=== PATIENT | male | born 1970 | race Caucasian/White ===

== ENCOUNTER → 2016-06-19 | Outpatient (REF) | payer BC ==
[~2016-06-19] MED LIST: LISI-538 PO
[2016-06-19 16:09] LABS: VITAMIN B12 LEVEL 515 PG/ML (247-911)
[2016-06-20 08:29] LABS: CONTROL LINE HPYORI INT CTR LINE PRESENT
== END ==
LOC: M LAB REF 14:52
PROVIDERS: ATTEND Internal Medicine
DX: D51.9 Vitamin B12 deficiency anemia, unspecified (principal); R12 Heartburn

== ENCOUNTER 2016-08-22 08:52 | Outpatient (CLI) | payer BC ==
[~2016-08-22] VITALS: Ht 182.9 cm; Wt 96.4 kg
[~2016-08-22 08:52] MED LIST changes: +OMEP20CA3 PO
[2016-08-22] MEDS ORDERED: NS 1,000 ML IV SCH (09:00)
[2016-08-22] MEDS ORDERED: OMEP20CA3 PO (09:39)
[2016-08-22] MEDS ORDERED: LIDOCAINE 2% INJ 100 MG/5 ML SDV (FOR ANES.) As Ordered ONE (10:37)
[2016-08-22] MEDS ORDERED: fentaNYL 100 MCG/2 ML INJECTION (J3010) As Ordered ONE (10:37)
[2016-08-22] MEDS ORDERED: PROPOFOL 200 MG/20 ML VIAL As Ordered ONE ×2 (10:37→10:45)
--- NOTE | 2016-08-22 10:59 | ROOR ---
Patient Name: Irvin Rangel Procedure Date: 08/22/2016 10:33 AM Date of : 1970 Age: 46 Room: [facility] Gender: Male Note Status: Finalized Procedure: Upper GI endoscopy Indications: Dysphagia, Heartburn Providers: Darnell PRETTY MD Referring MD: Aurelia Preston DO Requesting Provider: Medicines: Monitored Anesthesia Care Complications: No immediate complications. Procedure: Pre-Anesthesia Assessment: - The heart rate, respiratory rate, oxygen saturations, blood pressure, adequacy of pulmonary ventilation, and response to care were monitored throughout the procedure. The Endoscope was introduced through the mouth, and advanced to the second part of duodenum. The upper GI endoscopy was accomplished without difficulty. The patient tolerated the procedure well. Findings: Circumferential salmon-colored mucosa was present from 38 to 40 cm. No other visible abnormalities were present. The maximum longitudinal extent of these esophageal mucosal changes was 2 cm in length. Biopsies were taken with a cold forceps for histology. The entire examined stomach was normal. The examined duodenum was normal. No endoscopic abnormality was evident in the esophagus to explain the patient's complaint of dysphagia. It was decided, however, to proceed with dilation of the entire esophagus. The scope was withdrawn. Dilation was performed with a Red dilator with no resistance at 54 Fr. Impression: - [place]-colored mucosa suggestive of short-segment (2 cm) Caldwell's esophagus-(smooth, no visible abnormalities). Biopsied x 10 biopsies. - Normal stomach. - Normal examined duodenum. - Schatzki ring as suspected on Barium swallow exam, is not present/seen. - No endoscopic esophageal abnormality to explain patient's dysphagia. Esophagus dilated with 54 F Red dilator. Recommendation: - Use Prilosec (omeprazole) 40 mg twice a day for Barretts esophagus. - Telephone endoscopist for pathology results in 2 weeks. - Repeat upper endoscopy in 3 years for surveillance. - Observe patient's clinical course. Darnell Pretty MD Darnell PRETTY MD 08/22/2016 10:59:22 AM This report has been signed electronically. Number of Addenda: 0 Note Initiated On: 08/22/2016 10:33 AM Estimated Blood Loss: Estimated blood loss: none.
[2016-08-22 11:15] VITALS: BP 142/78
== END 2016-08-22 11:33 | disposition home or self-care (01) ==
LOC: M OPP 08:52
PROVIDERS: ATTEND Internal Medicine Gastroenterology
DX: R12 Heartburn (principal); K22.8 Other specified diseases of esophagus; K20.9 Esophagitis, unspecified; I10 Essential (primary) hypertension; Z88.5 Allergy status to narcotic agent; Z79.899 Other long term (current) drug therapy
CPT/HCPCS: 43239; 43450; 88305; 99156; J3010

== ENCOUNTER → 2018-03-18 | Outpatient (CLI) | payer BC | LOC: M WUC 11:25 | DX: S20.211A Contusion of right front wall of thorax, initial encounter (principal); X58.XXXA Exposure to other specified factors, initial encounter; Y92.9 Unspecified place or not applicable | CPT/HCPCS: 71101 ==

== ENCOUNTER → 2018-12-04 | Outpatient (CLI) | payer BC ==
[~2018-12-04] MED LIST changes: +E-Z-GAS II EFFERVESCENT PACKET (SODIUM BICARB./CITRIC ACID/SIMETHICONE) As Ordered ONE; +E-Z-HD 98% w/w 340GM SUSP BTL As Ordered ONE; +E-Z-PAQUE 96% w/w SUSP 176GM BTL As Ordered ONE; +OMEP1CAP73 PO; -OMEP20CA3 PO
--- NOTE | 2018-12-05 00:16 | REP ---
Upper GI Air Contrast with SBFT The procedure was performed by FLORA Lopez, under the the direct supervision of Dr. Ricks. The images were reviewed with Dr. Ricks. The supervising floorperson film shows no organomegaly or pathological masses. The intestinal gas pattern appears normal. Liquid barium and gas producing crystals were given in the erect position as well as liquid barium in the prone position in order to perform a double contrast upper GI examination. The oral and pharyngeal stages of deglutition were unremarkable. The esophagus appears dilated. Esophageal transport is efficient and there is no esophagitis, stricture, or mucosal ring noted. However, there was delayed emptying and tertiary contractions were observed when the patient was in the prone and supine positions. There is no hiatal hernia. Gastroesophageal reflux was not observed throughout the course of the exam. The stomach jacobsen are normally outlined. The rugal folds are smooth and regular. There is no gastritis, neoplasm, or ulcer disease noted. The duodenal jacobsen are normally outlined. The mucosal folds are smooth and regular. There is no duodenitis, peptic ulcer disease, or neoplasm noted. The visualized portion of the proximal small bowel appears normal in course and caliber. The barium column was followed through the small bowel to the level of the terminal ileum. Small bowel transit time was approximately 20 minutes. During fluoroscopy gentle palpation shows all loops are freely mobile and pliable. There are no fixed or angulated loops. The small bowel mucosal pattern is normal in course and caliber. There is no transition to set suggest a partial small-bowel obstruction. The appendix is visualized. Spot filming of the terminal ileum shows it to be unremarkable. Impression: 1. Dilated esophagus without any evidence of stricture. 2. Tertiary contractions. 3. Small bowel transit time of approximately 20 minutes. 1.4 minutes of fluoroscopy time was utilized for this procedure. Some fluoroscopic images are performed with last image hold technology. These images require no additional radiation. Reviewed by FLORA Brunson 12/04/2018 04:58 P Electronically Signed by Cleveland Ricks MD 12/05/2018 12:07 A
== END ==
LOC: M RAD 08:03
PROVIDERS: ATTEND Internal Medicine
DX: R13.10 Dysphagia, unspecified (principal)

== ENCOUNTER → 2019-08-12 | Outpatient (CLI) | payer BC ==
[~2019-08-12] MED LIST changes: -E-Z-GAS II EFFERVESCENT PACKET (SODIUM BICARB./CITRIC ACID/SIMETHICONE) As Ordered ONE; -E-Z-HD 98% w/w 340GM SUSP BTL As Ordered ONE; -E-Z-PAQUE 96% w/w SUSP 176GM BTL As Ordered ONE
== END ==
LOC: M LABSMTC 09:59
PROVIDERS: ATTEND Family Medicine
DX: Z11.59 Encounter for screening for other viral diseases (principal); Z20.828 Contact with and (suspected) exposure to other viral communicable diseases

== ENCOUNTER → 2020-04-29 | Outpatient (CLI) | payer BC ==
[2020-04-29 11:52] LABS: BASO % 0.3 % (0.0-1.0); EOS # 0.1 10^3/uL (0.0-0.5); HEMATOCRIT 47.8 % (42.0-52.0); HEMOGLOBIN 15.6 g/dl (13.5-17.5); LYMPH % 29.4 % (24.0-44.0); MEAN CORPUSCULAR HEMOGLOBIN 28.6 pg (27.0-33.0); MEAN CORPUSCULAR HGB CONC 32.6 g/dl (32.0-36.5); MEAN CORPUSCULAR VOLUME 87.5 fl (80.0-96.0); MONO # 0.3 10^3/uL (0.0-0.8); MONO % 4.2 % (0.0-5.0); NEUTROPHILS # 4.4 10^3/uL (1.5-8.5); NEUTROPHILS % 64.7 % (36.0-66.0); PLATELET COUNT, AUTOMATED 233 10^3/uL (150-450); RED BLOOD COUNT 5.46 10^6/uL (4.30-6.10); WHITE BLOOD COUNT 6.8 10^3/uL (4.0-10.0)
[2020-04-29 12:33] LABS: BLOOD UREA NITROGEN 13 MG/DL (7-18); CARBON DIOXIDE LEVEL 31 MEQ/L (21-32); CHLORIDE LEVEL 105 MEQ/L (98-107); CREATININE FOR GFR 1.06 MG/DL (0.70-1.30); GLOMERULAR FILTRATION RATE > 60.0 (>60); GLUCOSE, FASTING 129 MG/DL (70-100); POTASSIUM SERUM 3.8 MEQ/L (3.5-5.1); SODIUM LEVEL 140 MEQ/L (136-145)
[2020-04-29 12:34] LABS: ALBUMIN 4.2 GM/DL (3.2-5.2); ALT/SGPT 27 U/L (12-78); CALCIUM LEVEL 9.1 MG/DL (8.5-10.1); FREE T4 1.06 NG/DL (0.76-1.46); IRON (FE) 120 UG/DL (65-175); PERCENT SATURATION 36.6 % (19.7-50.0); TOTAL IRON BINDING CAPACITY 328 UG/DL (250-450); TOTAL PROTEIN 7.4 GM/DL (6.4-8.2)
[2020-05-04 00:10] LABS: PSA TOTAL 0.5 ng/mL (0.0-4.0)
== END ==
LOC: M WUC 09:07
PROVIDERS: ATTEND Physician Assistant
DX: R10.30 Lower abdominal pain, unspecified (principal); R31.9 Hematuria, unspecified

== ENCOUNTER → 2020-06-19 | Outpatient (REF) ==
[~2020-06-19] MED LIST changes: -LISI-538 PO; +LISI20TA33 PO
== END ==
LOC: M LABSMTC 10:32
PROVIDERS: ATTEND Pediatrics
DX: Z11.52 Encounter for screening for COVID-19 (principal)

== ENCOUNTER → 2020-06-27 | Outpatient (CLI) | payer BC | LOC: M LABSMTC 10:16 | PROVIDERS: ATTEND Anesthesiology | DX: Z01.812 Encounter for preprocedural laboratory examination (principal); Z20.822 Contact with and (suspected) exposure to COVID-19 ==

== ENCOUNTER 2020-07-02 07:33 | Day surgery (SDC) | payer BC ==
[~2020-07-02] VITALS: Ht 180.3 cm; Wt 96.2 kg
[~2020-07-02 07:33] MED LIST changes: +LR 1,000 ML IV ONE; +ceFAZolin SOD 2 GM in IV 1 EA IV ONE
[2020-07-02] MEDS ORDERED: BUPIVACAINE/EPIN 0.25% 30 ML VIAL As Ordered ONE (08:12)
[2020-07-02] MEDS ORDERED: LIDOCAINE 2% 100MG/5ML SDV (FOR ANES.) As Ordered ONE (08:19)
[2020-07-02] MEDS ORDERED: ROCURONIUM BROMIDE 50 MG/5 ML VIAL As Ordered ONE (08:19)
[2020-07-02] MEDS ORDERED: propofoL 200 MG/20 ML VIAL As Ordered ONE (08:19)
[2020-07-02] MEDS ORDERED: fentaNYL 250 MCG/5 ML INJECTION (J3010) As Ordered ONE (08:20)
[2020-07-02] MEDS ORDERED: MIDAZOLAM INJ 2MG/2ML VIAL (J2250 PER 1MG) As Ordered ONE (08:20)
[2020-07-02] MEDS ORDERED: SCOPOLAMINE 1MG TRANSDERMAL PATCH As Ordered ONE (08:27)
[2020-07-02] MEDS ORDERED: SCOPOLAMINE 1MG TRANSDERMAL PATCH TOP ONE (09:05)
[2020-07-02] MEDS ORDERED: ONDANSETRON 4MG/2ML VIAL As Ordered ONE (09:52)
[2020-07-02] MEDS ORDERED: KETOROLAC 60MG 2ML VIAL As Ordered ONE (09:52)
[2020-07-02] MEDS ORDERED: ACETAMINOPHEN 1000MG 100ML IV BTL (OFIRMEV) (J0131 PER 10MG) As Ordered ONE (09:52)
[2020-07-02] MEDS ORDERED: METOCLOPRAMIDE INJ 10MG/2ML VIAL (J2765 PER 1) As Ordered ONE (09:52)
[2020-07-02] MEDS ORDERED: dexameTHASONE 4 MG/ML 1ML VIAL (J1100 PER 1MG) As Ordered ONE (09:52)
[2020-07-02] MEDS ORDERED: SUGAMMADEX SODIUM 500 MG/5 ML VIAL (BRIDION) As Ordered ONE (09:55)
[2020-07-02] MEDS ORDERED: ONDANSETRON 4MG/2ML VIAL IV PRN (11:00)
[2020-07-02] MEDS ORDERED: LR 1,000 ML IV SCH (11:00)
[2020-07-02] MEDS ORDERED: PERCOCET 5MG/325MG TAB PO PRN (11:00)
[2020-07-02] MEDS ORDERED: fentaNYL 100 MCG/2 ML INJECTION (J3010) IV PRN (11:00)
[2020-07-02] MEDS ORDERED: METOCLOPRAMIDE INJ 10MG/2ML VIAL (J2765 PER 1) IV PRN (11:00)
--- NOTE | 2020-07-02 11:02 | RO ---
OPERATIVE NOTE DATE OF OPERATION: 07/02/2020 PREOPERATIVE DIAGNOSIS: Incarcerated right inguinal hernia. POSTOPERATIVE DIAGNOSIS: Incarcerated right inguinal hernia. PROCEDURE: Robotic repair of incarcerated right inguinal hernia. SURGEON: Cleveland Vargas DO HOUSE CARPENTER: Debra Hauser ANESTHESIA: General. EBL: 5. COMPLICATIONS: None. INDICATIONS FOR PROCEDURE: The patient is a 49-year-old male who presents with a bulge in the right groin that is not reducible. Recommendation made to proceed with robotic repair. Risks and benefits of the procedure not limited to but including bleeding, infection, hernia formation, hernia recurrence, damage to surrounding structures, need for further surgery discussed in detail with the patient, informed consent was obtained and procedure planned. DESCRIPTION OF PROCEDURE: The patient was brought back to operating room 7 after sufficient sedation the abdomen was sterilely prepped and draped. Time out was done to confirm proper patient and proper procedure. Following that an 8 mm incision was made in left upper quadrant, Veress needle inserted and abdomen insufflated to 15 mmHg. Veress needle was removed and 8 mm Optiview port was used to gain access to the abdomen. Once the abdomen was entered two more ports were placed, one subxiphoid, one in right upper quadrant. The abdomen was examined. The robot was then docked to the ports. From the console the right lower quadrant was examined, preperitoneal horizontal incision was then created to enter the preperitoneal space. The peritoneum was dissected free medially and laterally and posteriorly. Once that was completed there was a large direct defect superior to the inguinal ligament involving a large amount of incarcerated fat. This was carefully reduced. There was also a very large cord lipoma that was carefully reduced and completely removed as well. Once all of this area was completely dissected free Stratafix suture was used to primarily close the direct defect. Once that was completed a large 3DMax light mesh was placed into the preperitoneal space on the right side, sutured to the pubic symphysis with 2-0 Vicryl suture. The 2-0 V-Loc was then used to close the peritoneum over top of the mesh. Once this was all completed the abdomen was desufflated, cord lipomas were removed from the abdomen along with the sutures. Skin incisions were closed with 4-0 Vicryl subcuticular sutures. The abdomen was cleaned and dried. 4 x 4s and tape were applied. This ended the procedure.
[2020-07-02] MEDS ORDERED: ESMOLOL INJ 100MG/10ML VIAL As Ordered ONE (11:04)
[2020-07-02] MEDS ORDERED: NORCO, ANEXSIA 5/325MG TABLET (HYDROcodone/ACETAMINOPHEN) PO PRN (12:00)
[2020-07-02 12:30] VITALS: BP 134/76
== END 2020-07-02 12:45 | disposition home or self-care (01) ==
LOC: M SDC 07:33
PROVIDERS: ATTEND Surgery
DX: K40.30 Unilateral inguinal hernia, with obstruction, without gangrene, not specified as recurrent (principal); I10 Essential (primary) hypertension; Z88.5 Allergy status to narcotic agent; K21.9 Gastro-esophageal reflux disease without esophagitis; G43.909 Migraine, unspecified, not intractable, without status migrainosus; Z79.899 Other long term (current) drug therapy
CPT/HCPCS: 49650; 88304; C1781; J0131; J0690; J1100; J1885; J2250; J2405; J2765; J3010; S2900

== ENCOUNTER 2021-01-15 00:40 | Emergency (ER) | payer BC ==
[~2021-01-15] VITALS: Ht 180.3 cm; Wt 92.5 kg
[~2021-01-15 00:40] MED LIST changes: -LR 1,000 ML IV ONE; -ceFAZolin SOD 2 GM in IV 1 EA IV ONE
[2021-01-15 02:17] LABS: BASO % 0.3 % (0.0-1.0); EOS # 0.1 10^3/uL (0.0-0.5); EOS % 0.9 % (0.0-3.0); HEMATOCRIT 44.4 % (42.0-52.0); HEMOGLOBIN 15.1 g/dl (13.5-17.5); LYMPH # 2.2 10^3/uL (1.5-5.0); LYMPH % 34.9 % (24.0-44.0); MEAN CORPUSCULAR HEMOGLOBIN 29.8 pg (27.0-33.0); MEAN CORPUSCULAR VOLUME 87.6 fl (80.0-96.0); MONO # 0.4 10^3/uL (0.0-0.8); MONO % 5.8 % (2.0-8.0); NEUTROPHILS # 3.7 10^3/uL (1.5-8.5); NEUTROPHILS % 57.6 % (36.0-66.0); PLATELET COUNT, AUTOMATED 196 10^3/uL (150-450); RED BLOOD COUNT 5.07 10^6/uL (4.30-6.10); WHITE BLOOD COUNT 6.4 10^3/uL (4.0-10.0)
[2021-01-15 02:41] VITALS: BP 131/87
[2021-01-15 02:51] LABS: ALBUMIN 3.5 GM/DL (3.2-5.2); ALT/SGPT 33 U/L (12-78); BILIRUBIN,DIRECT 0.3 MG/DL (0.0-0.2); BILIRUBIN,TOTAL 1.6 MG/DL (0.2-1.0); BLOOD UREA NITROGEN 12 MG/DL (7-18); CALCIUM LEVEL 8.5 MG/DL (8.5-10.1); CARBON DIOXIDE LEVEL 29 MEQ/L (21-32); CHLORIDE LEVEL 109 MEQ/L (98-107); CK-MB VALUE MASS < 1.0 NG/ML (<3.6); CPK CREATINE PHOSPHOKINASE 113 U/L (39-308); CREATININE FOR GFR 0.84 MG/DL (0.70-1.30); GLOMERULAR FILTRATION RATE > 60.0 (>60); GLUCOSE, FASTING 99 MG/DL (70-100); LIPASE 84 U/L (73-393); MB/CK RELATIVE INDEX 0.88 (< OR =4); POTASSIUM SERUM 3.7 MEQ/L (3.5-5.1); SODIUM LEVEL 142 MEQ/L (136-145); TOTAL PROTEIN 6.7 GM/DL (6.4-8.2); TROPONIN I < 0.02 NG/ML (< 0.10)
--- NOTE | 2021-01-15 04:06 | REPVR ---
PROCEDURE INFORMATION: Exam: XR Chest Exam date and time: 01/15/2021 2:48 AM Age: 50 years old Clinical indication: Other: Chest pain TECHNIQUE: Imaging protocol: XR of the chest. Views: 1 view. COMPARISON: CR RIBS UNLATERAL WITH PA CHEST 03/18/2018 11:37 AM FINDINGS: Lungs: There are no interval infiltrates. Pleural spaces: Unremarkable. No pleural effusion. No pneumothorax. Heart/Mediastinum: The heart and mediastinum are unchanged. Bones/joints: Bilateral screws extending into the glenoids. IMPRESSION: Stable essentially negative chest since 03/18/2018. Electronically signed by: Porfirio Gomez On 01/15/2021 04:05:45 AM
--- NOTE | 2021-01-15 11:26 | ECGEPIP ---
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
== END 2021-01-15 03:50 | disposition home or self-care (01) ==
LOC: M ED 00:40
DX: I49.3 Ventricular premature depolarization (principal); R00.2 Palpitations; I10 Essential (primary) hypertension; I44.0 Atrioventricular block, first degree; I45.19 Other right bundle-branch block; Z79.899 Other long term (current) drug therapy; Z88.5 Allergy status to narcotic agent

== ENCOUNTER 2021-02-07 10:31 | Emergency (ER) | payer BC ==
[~2021-02-07] VITALS: Ht 180.3 cm; Wt 93.6 kg
--- NOTE | 2021-02-07 13:39 | REP ---
INDICATION: r/o dvt. COMPARISON: None. TECHNIQUE: Multiple ultrasonographic images of the deep venous structures of the bilateral lower extremity were obtained from the inguinal ligament to the ankle. Venous compression techniques, color doppler imaging, and augmentation techniques were also obtained where appropriate. As per the ACR guidelines the anterior tibial vein can not be effectively evaluated. Only compression techniques in the calf on the peroneal and posterior tibial veins was attempted/performed. FINDINGS: There is no abnormal echogenic material seen within any of the visualized deep venous structures that would suggest acute thrombosis. Coaptation is unremarkable throughout. Doppler interrogation shows an expected response to respiratory variability and augmentation in the thigh. Compression techniques in the calf showed no abnormality. The color flow images show what appears to be a normal vascular pattern throughout the thigh. IMPRESSION: There is no ultrasonographic evidence of deep venous thrombosis involving any of the visualized deep venous structures of the bilateral lower extremity as described above. <Electronically signed by Karan Wagner > 02/07/21 [id number]
[2021-02-07 14:07] LABS: BASO # 0.1 10^3/uL (0.0-0.2); BASO % 0.5 % (0.0-1.0); EOS # 0.1 10^3/uL (0.0-0.5); EOS % 0.7 % (0.0-3.0); HEMATOCRIT 48.7 % (42.0-52.0); HEMOGLOBIN 16.3 g/dl (13.5-17.5); LYMPH # 2.1 10^3/uL (1.5-5.0); LYMPH % 19.7 % (24.0-44.0); MEAN CORPUSCULAR HEMOGLOBIN 29.9 pg (27.0-33.0); MEAN CORPUSCULAR HGB CONC 33.5 g/dl (32.0-36.5); MEAN CORPUSCULAR VOLUME 89.2 fl (80.0-96.0); MONO # 0.5 10^3/uL (0.0-0.8); MONO % 4.5 % (2.0-8.0); NEUTROPHILS # 7.9 10^3/uL (1.5-8.5); NEUTROPHILS % 74.2 % (36.0-66.0); PLATELET COUNT, AUTOMATED 245 10^3/uL (150-450); RED BLOOD COUNT 5.46 10^6/uL (4.30-6.10); WHITE BLOOD COUNT 10.7 10^3/uL (4.0-10.0)
[2021-02-07 14:29] LABS: ALBUMIN 3.9 GM/DL (3.2-5.2); ALT/SGPT 39 U/L (12-78); BILIRUBIN,DIRECT 0.3 MG/DL (0.0-0.2); BILIRUBIN,TOTAL 1.3 MG/DL (0.2-1.0); BLOOD UREA NITROGEN 9 MG/DL (7-18); CALCIUM LEVEL 8.4 MG/DL (8.5-10.1); CARBON DIOXIDE LEVEL 31 MEQ/L (21-32); CHLORIDE LEVEL 108 MEQ/L (98-107); CREATININE FOR GFR 0.91 MG/DL (0.70-1.30); GLOMERULAR FILTRATION RATE > 60.0 (>60); GLUCOSE, FASTING 82 MG/DL (70-100); POTASSIUM SERUM 4.4 MEQ/L (3.5-5.1); SODIUM LEVEL 141 MEQ/L (136-145); TOTAL PROTEIN 7.4 GM/DL (6.4-8.2)
[2021-02-07 15:21] VITALS: BP 141/86
== END 2021-02-07 15:22 | disposition home or self-care (01) ==
LOC: M ED 10:31
DX: D72.829 Elevated white blood cell count, unspecified (principal); E83.51 Hypocalcemia; E80.7 Disorder of bilirubin metabolism, unspecified; I10 Essential (primary) hypertension; I83.813 Varicose veins of bilateral lower extremities with pain; Z88.5 Allergy status to narcotic agent

== ENCOUNTER → 2021-03-15 | Outpatient (REF) | LOC: M EMP 07:53 | PROVIDERS: ATTEND Family Medicine | DX: Z20.822 Contact with and (suspected) exposure to COVID-19 (principal) ==

== ENCOUNTER → 2021-03-19 | Outpatient (REF) | LOC: M LABSMTC 10:12 | PROVIDERS: ATTEND Pediatrics | DX: Z20.828 Contact with and (suspected) exposure to other viral communicable diseases (principal) ==

== ENCOUNTER → 2022-12-08 | Outpatient (CLI) | payer BC | LOC: M WUC 14:21 | PROVIDERS: ATTEND Internal Medicine | DX: R07.81 Pleurodynia (principal) ==

== ENCOUNTER → 2023-03-30 | Outpatient (CLI) | payer OTHER ==
[~2023-03-30] MED LIST changes: +GASTROGRAFIN SOLUTION 30ML As Ordered ONE; +ISOVUE-370 76% 100ML VIAL As Ordered ONE
== END ==
LOC: M RAD 15:22
PROVIDERS: ATTEND Internal Medicine
DX: K76.0 Fatty (change of) liver, not elsewhere classified (principal); K57.90 Diverticulosis of intestine, part unspecified, without perforation or abscess without bleeding; R10.814 Left lower quadrant abdominal tenderness
CPT/HCPCS: 74177; Q9963; Q9967

== ENCOUNTER → 2024-02-13 | Outpatient (CLI) | payer OTHER ==
[~2024-02-13] MED LIST changes: -GASTROGRAFIN SOLUTION 30ML As Ordered ONE; -ISOVUE-370 76% 100ML VIAL As Ordered ONE
== END ==
LOC: M WUC 10:03
PROVIDERS: ATTEND Physician Assistant
DX: S20.211A Contusion of right front wall of thorax, initial encounter (principal); Z87.81 Personal history of (healed) traumatic fracture; X58.XXXA Exposure to other specified factors, initial encounter; Y92.9 Unspecified place or not applicable; Y93.9 Activity, unspecified

== ENCOUNTER 2024-04-11 04:50 | Emergency (ER) | payer OTHER ==
[~2024-04-11] VITALS: Ht 180.3 cm; Wt 97.7 kg
[2024-04-11] MEDS ORDERED: PRED10TA2 PO (07:12)
[2024-04-11] MEDS ORDERED: BENZ200C70 PO (07:14)
[2024-04-11 07:22] VITALS: BP 149/80; TEMP 99.4; O2SAT 99
== END 2024-04-11 07:24 | disposition home or self-care (01) ==
LOC: M ED 04:50
DX: J20.9 Acute bronchitis, unspecified (principal); Z79.899 Other long term (current) drug therapy; Z88.5 Allergy status to narcotic agent

== ENCOUNTER → 2024-05-21 | Outpatient (CLI) | payer OTHER ==
[~2024-05-21] MED LIST changes: +BENZ200C70 PO; +METHACHOLINE KIT (6 VIAL.NEB PREMIX) INH ONE; +PRED10TA2 PO
== END ==
LOC: M CARPUL 09:41
PROVIDERS: ATTEND Internal Medicine
DX: R05.3 Chronic cough (principal)

== ENCOUNTER → 2024-05-22 | Outpatient (CLI) | payer OTHER ==
[~2024-05-22] MED LIST changes: -METHACHOLINE KIT (6 VIAL.NEB PREMIX) INH ONE
[2024-05-22 16:44] LABS: PERCENT SATURATION 23.1 % (19.7-50.0)
[2024-05-22 16:50] LABS: FOLATE 12.5 NG/ML (>5.4)
[2024-05-22 16:58] LABS: BASO % 0.4 % (0.0-1.0); EOS # 0.1 10^3/uL (0.0-0.5); EOS % 0.9 % (0.0-3.0); HEMATOCRIT 44.4 % (42.0-52.0); HEMOGLOBIN 15.3 g/dl (13.5-17.5); LYMPH # 2.1 10^3/uL (1.5-5.0); LYMPH % 18.9 % (24.0-44.0); MEAN CORPUSCULAR HEMOGLOBIN 30.3 pg (27.0-33.0); MEAN CORPUSCULAR HGB CONC 34.5 g/dl (32.0-36.5); MEAN CORPUSCULAR VOLUME 87.9 fl (80.0-96.0); MONO # 0.6 10^3/uL (0.0-0.8); NEUTROPHILS # 8.4 10^3/uL (1.5-8.5); NEUTROPHILS % 74.5 % (36.0-66.0); PLATELET COUNT, AUTOMATED 269 10^3/uL (150-450); RED BLOOD COUNT 5.05 10^6/uL (4.30-6.10); WHITE BLOOD COUNT 11.3 10^3/uL (4.0-10.0)
== END ==
LOC: M WUC 13:02
PROVIDERS: ATTEND Student in an Organized Health Care Education/Training Program
DX: R04.0 Epistaxis (principal)

== ENCOUNTER → 2024-05-26 | Outpatient (CLI) | payer OTHER | LOC: M WUC 09:50 | PROVIDERS: ATTEND Nurse Practitioner Family | DX: R05.9 Cough, unspecified (principal) ==

== ENCOUNTER → 2025-01-13 | Outpatient (CLI) | payer OTHER ==
[2025-01-13 15:50] LABS: BASO # 0.0 10^3/uL (0.0-0.2); BASO % 0.5 % (0.0-1.0); EOS # 0.1 10^3/uL (0.0-0.5); EOS % 1.1 % (0.0-3.0); LYMPH # 2.1 10^3/uL (1.5-5.0); LYMPH % 26.5 % (24.0-44.0); MONO # 0.5 10^3/uL (0.0-0.8); MONO % 5.6 % (2.0-8.0); NEUTROPHILS # 5.4 10^3/uL (1.5-8.5); NEUTROPHILS % 66.1 % (36.0-66.0); PLATELET COUNT, AUTOMATED 246 10^3/uL (150-450)
== END ==
LOC: M WUC 11:07
PROVIDERS: ATTEND Allergy & Immunology
DX: R53.81 Other malaise (principal); J30.89 Other allergic rhinitis; L50.9 Urticaria, unspecified

== ENCOUNTER → 2025-04-09 | Outpatient (CLI) | payer OTHER ==
[2025-04-09 18:17] LABS: BASO # 0.0 10^3/uL (0.0-0.2); BASO % 0.6 % (0.0-1.0); EOS # 0.1 10^3/uL (0.0-0.5); EOS % 2.0 % (0.0-3.0); LYMPH # 2.7 10^3/uL (1.5-5.0); LYMPH % 38.2 % (24.0-44.0); MONO # 0.5 10^3/uL (0.0-0.8); MONO % 6.8 % (2.0-8.0); NEUTROPHILS # 3.7 10^3/uL (1.5-8.5); NEUTROPHILS % 52.0 % (36.0-66.0); PLATELET COUNT, AUTOMATED 255 10^3/uL (150-450)
== END ==
LOC: M WUC 14:22
PROVIDERS: ATTEND Allergy & Immunology
DX: L50.9 Urticaria, unspecified (principal); R19.7 Diarrhea, unspecified; R53.81 Other malaise

== ENCOUNTER → 2025-04-13 | Outpatient (REF) | payer OTHER | LOC: M LAB REF 11:39 | PROVIDERS: ATTEND Allergy & Immunology | DX: R19.7 Diarrhea, unspecified (principal); L50.9 Urticaria, unspecified; R53.81 Other malaise ==